=== PATIENT | female | born 1940 | race Caucasian/White ===

== ENCOUNTER 2016-08-22 18:20 | Emergency (ER) | payer MEDICARE ==
[~2016-08-22] VITALS: Ht 149.9 cm; Wt 61.2 kg
[~2016-08-22 18:20] MED LIST: ACID REDUCER; ASPI-515 PO; ASPI325T4 PO; CA C1TAB60 PO; EXEN5PEN2 SQ; FISH OIL PO; FLUT10SP NAS; IBUP1TAB11 PO; INSU100C5 SQ-INSULIN; INSU100V14 SQ; LEVIMIR SC; LEVO50TA5 PO; MAGNESIUM PO; MELATONIN PO; MELO-184 PO; METF1000 PO; METO1TAB6 PO; METO25TA35 PO; METO50TA82 PO; OMEP-110 PO; ONE A DAY VITAMIN PO; OXYC5CAP4 PO; SIMV20TA3 PO; TUMS; TYLENOL PM PO; TYLENOL PO; ULTRAM PO; VITA150T PO; VITAMIN B12 PO; VITAMIN C PO; VITAMIN D PO; ZOLP10TA5 PO; [UNRECOGNIZED DRUG - OTHER] PO
[2016-08-22] MEDS ORDERED: TRAM-28 PO (21:57)
[2016-08-22] MEDS ORDERED: INSU100V13 SQ (21:57)
[2016-08-22] MEDS ORDERED: HYDROmorphone 1 MG/ML, 1ML ONE (21:58)
[2016-08-22] MEDS ORDERED: HYDROmorphone 1 MG/ML, 1ML IM ONE (22:00)
[2016-08-22 23:19] VITALS: BP 112/65
== END 2016-08-22 23:21 | disposition home or self-care (01) ==
LOC: ED 19:17
DX: M54.41 Lumbago with sciatica, right side (principal); I10 Essential (primary) hypertension; E11.9 Type 2 diabetes mellitus without complications; I25.10 Atherosclerotic heart disease of native coronary artery without angina pectoris; E78.00 Pure hypercholesterolemia, unspecified; Z85.3 Personal history of malignant neoplasm of breast
CPT/HCPCS: 72131; 73564; 73700; 96372; 99284; J1170

== ENCOUNTER → 2016-12-28 | Outpatient (CLI) | payer MEDICARE ==
[~2016-12-28] MED LIST changes: +INSU100V13 SQ; +TRAM-28 PO
[2016-12-28 15:54] LABS: ASPARTATE AMINO TRANSFERASE 22 U/L (15-37); BLOOD UREA NITROGEN 22 mg/dL (7-18)
== END | disposition home or self-care (01) ==
LOC: STAR 14:34
PROVIDERS: ATTEND Urology
DX: Z01.818 Encounter for other preprocedural examination (principal); C64.9 Malignant neoplasm of unspecified kidney, except renal pelvis; R82.99 Other abnormal findings in urine
CPT/HCPCS: 36415; 80053; 81003; 85025; 87086; 93005

== ENCOUNTER 2016-12-30 08:51 | Day surgery (SDC) | payer MEDICARE ==
[~2016-12-30] VITALS: Ht 149.9 cm; Wt 60.2 kg
[2016-12-30 09:34] VITALS: BP 134/90
[2016-12-30] MEDS ORDERED: SODIUM CHLORIDE 0.9% 1,000 ML IV SCH (10:00)
[2016-12-30] MEDS ORDERED: MIDAZOLAM 1 MG/ML, 5ML ONE ×2 (10:33→10:34)
[2016-12-30] MEDS ORDERED: NALOXONE 1 MG/ML, 2ML ONE (10:35)
[2016-12-30] MEDS ORDERED: FENTANYL PF 100 MCG/2ML ONE ×2 (10:35)
[2016-12-30] MEDS ORDERED: FLUMAZENIL 0.1 MG/1 ML, 5ML ONE (10:35)
== END 2016-12-30 12:55 ==
LOC: OUT 08:51 → EDSTATUS 10:30 → OUT 12:55
PROVIDERS: ATTEND Urology
DX: C64.1 Malignant neoplasm of right kidney, except renal pelvis (principal); I10 Essential (primary) hypertension; E11.9 Type 2 diabetes mellitus without complications; E78.00 Pure hypercholesterolemia, unspecified; Z87.39 Personal history of other diseases of the musculoskeletal system and connective tissue; Z85.3 Personal history of malignant neoplasm of breast; Z79.82 Long term (current) use of aspirin; Z98.890 Other specified postprocedural states; Z96.649 Presence of unspecified artificial hip joint; Z96.659 Presence of unspecified artificial knee joint; Z90.10 Acquired absence of unspecified breast and nipple; Z87.891 Personal history of nicotine dependence
CPT/HCPCS: 36415; 50200; 77012; 85610; 88304; 99156; 99157; J2250; J3010; J2310

== ENCOUNTER → 2017-03-10 | Outpatient (CLI) | payer MEDICARE ==
[~2017-03-10] MED LIST changes: +ASPI325T17 PO; -ASPI325T4 PO; -MELO-184 PO; +MELO15TA24 PO; +OXYC5CAP2 PO; -OXYC5CAP4 PO; -TRAM-28 PO; +TRAM-47 PO
== END | disposition home or self-care (01) ==
LOC: CFH 13:04
PROVIDERS: ATTEND Internal Medicine Hematology & Oncology
DX: R60.0 Localized edema (principal); C50.412 Malignant neoplasm of upper-outer quadrant of left female breast
CPT/HCPCS: 93970

== ENCOUNTER → 2017-03-28 | Outpatient (CLI) | payer MEDICARE ==
[~2017-03-28] MED LIST changes: +LIDOCAINE 1%, 20ML ONE
== END | disposition home or self-care (01) ==
LOC: RAD 15:10
PROVIDERS: ATTEND Internal Medicine Hematology & Oncology
DX: R18.8 Other ascites (principal); C50.412 Malignant neoplasm of upper-outer quadrant of left female breast
CPT/HCPCS: 49083; J3490

== ENCOUNTER 2017-04-01 14:06 | Inpatient (IN) | payer MEDICARE ==
[~2017-04-01] VITALS: Ht 149.9 cm; Wt 63.0 kg
[~2017-04-01 14:06] MED LIST changes: -LIDOCAINE 1%, 20ML ONE
[2017-04-01] MEDS ORDERED: SODIUM CHLORIDE 0.9% 1,000 ML IV ONE (14:39)
[2017-04-01] MEDS ORDERED: SODIUM CHLORIDE 0.9% 1,000ML IVBOLUS ONE (15:00)
[2017-04-01 15:02] LABS: HEMATOCRIT 35.8 % (34.6-47.8); HEMOGLOBIN 11.4 g/dL (11.7-16.4); WHITE BLOOD COUNT 21.6 x10^3/uL (3.4-10)
[2017-04-01] MEDS ORDERED: DEXAMETHASONE 4 MG TABLET ONE (15:06)
[2017-04-01 15:13] LABS: ASPARTATE AMINO TRANSFERASE 18 U/L (15-37); BLOOD UREA NITROGEN 23 mg/dL (7-18)
[2017-04-01 15:34] LABS: VERIFY COUNTS? YES
[2017-04-01 15:35] LABS: ANISOCYTOSIS 1+; POLYCHROMASIA 1+
[2017-04-01 15:36] LABS: OVALOCYTES 1+
[2017-04-01 15:37] LABS: DIFF TOTAL CELLS COUNTED 100 CELL DIFF
[2017-04-01] MEDS ORDERED: SODIUM CHLORIDE FLUSH 10ML SYR IVF ONE (16:00)
[2017-04-01] MEDS ORDERED: ACETAMINOPHEN 325 MG TABLET PO PRN (17:30)
[2017-04-01] MEDS ORDERED: DEXTROSE 4 GM TAB.CHEW PO PRN (17:30)
[2017-04-01] MEDS ORDERED: ONDANSETRON ODT 4 MG PO PRN (17:30)
[2017-04-01] MEDS ORDERED: OMEPRAZOLE 20 MG CAPSULE.DR PO SCH (17:30)
[2017-04-01] MEDS ORDERED: MELOXICAM 15 MG TABLET PO PRN (17:30)
[2017-04-01] MEDS ORDERED: DEXTROSE 50%, 50ML SYRINGE IVPush PRN (17:30)
[2017-04-01] MEDS ORDERED: GLUCAGON 1 MG IM PRN (17:30)
[2017-04-01] MEDS ORDERED: ALBUTEROL/IPRATROPIUM 2.5MG/0.5MG, 3 ML NPPB PRN (17:30)
[2017-04-01] MEDS ORDERED: HYDROcodone/APAP 5/325 TABLET PO PRN (17:30)
[2017-04-01] MEDS ORDERED: CEFTRIAXONE 1,000 MG in DEXTROSE 5% 50 ML IV SCH ×2 (18:00→18:54)
[2017-04-01] MEDS: metroNIDAZOLE 500 MG TABLET PO SCH (19:48)
[2017-04-01] MEDS: SIMVASTATIN 20 MG TABLET PO SCH (19:49)
[2017-04-01] MEDS: METOPROLOL TARTRATE 50 MG TABLET PO SCH (19:50)
[2017-04-01 20:00] VITALS: BP 156/94
[2017-04-01] MEDS ORDERED: ZOLPIDEM 10MG TABLET PO PRN (21:00)
[2017-04-01] MEDS: SODIUM CHLORIDE 0.9% 1,000 ML IV SCH (21:04)
[2017-04-01] MEDS: ALUMINUM/MAG/SIMETHICONE 30 ML UDC PO PRN (21:05)
[2017-04-01] MEDS: SODIUM CHLORIDE FLUSH 10ML SYR IVF SCH (21:05)
[2017-04-01] MEDS: HEPARIN 5,000 UNITS/ML, 1ML SQ SCH (21:06)
[2017-04-01] MEDS: INSULIN ASPART 100 UNITS/ML, PEN SQ-INSULIN SCH (21:06)
[2017-04-01] MEDS: INSULIN DETEMIR 100 UNITS/ML, PEN SQ-INSULIN SCH (21:07)
[2017-04-01 23:56] VITALS: BP 156/94
[2017-04-02 02:00] VITALS: BP 93/66
[2017-04-02 05:26] LABS: HEMATOCRIT 32.7 % (34.6-47.8); HEMOGLOBIN 10.5 g/dL (11.7-16.4); WHITE BLOOD COUNT 22.3 x10^3/uL (3.4-10)
[2017-04-02 05:35] LABS: ASPARTATE AMINO TRANSFERASE 16 U/L (15-37); BLOOD UREA NITROGEN 16 mg/dL (7-18)
[2017-04-02] MEDS: metroNIDAZOLE 500 MG TABLET PO SCH ×4 (05:44→21:32)
[2017-04-02] MEDS: HEPARIN 5,000 UNITS/ML, 1ML SQ SCH ×3 (05:44→21:34)
[2017-04-02 06:00] LABS: DIFF TOTAL CELLS COUNTED 100 CELL DIFF
[2017-04-02 06:02] LABS: ANISOCYTOSIS 1+; MICROCYTOSIS 1+; VERIFY COUNTS? YES
[2017-04-02 06:03] LABS: OVALOCYTES 1+; POLYCHROMASIA 1+
[2017-04-02] MEDS: INSULIN ASPART 100 UNITS/ML, PEN SQ-INSULIN SCH ×5 (07:00→21:34)
[2017-04-02 08:03] VITALS: BP 104/69
[2017-04-02] MEDS: LEVOTHYROXINE 50 MCG TABLET PO SCH (08:32)
[2017-04-02] MEDS: ASPIRIN 81 MG TABLET EC PO SCH (08:32)
[2017-04-02] MEDS: METOPROLOL TARTRATE 50 MG TABLET PO SCH ×2 (08:32→21:33)
[2017-04-02] MEDS: SODIUM CHLORIDE FLUSH 10ML SYR IVF SCH ×2 (08:32→21:33)
[2017-04-02] MEDS: SODIUM CHLORIDE 0.9% 1,000 ML IV SCH (08:32)
[2017-04-02] MEDS: ALUMINUM/MAG/SIMETHICONE 30 ML UDC PO PRN ×2 (11:56→18:00)
[2017-04-02 13:02] VITALS: BP 135/77
[2017-04-02 13:13] VITALS: BP 100/63
[2017-04-02] MEDS ORDERED: DEXTROSE 4 GM TAB.CHEW PO PRN (19:30)
[2017-04-02] MEDS ORDERED: ZOLPIDEM 10MG TABLET PO PRN (19:30)
[2017-04-02] MEDS ORDERED: ACETAMINOPHEN 325 MG TABLET PO PRN (19:30)
[2017-04-02] MEDS ORDERED: HYDROcodone/APAP 5/325 TABLET PO PRN (19:30)
[2017-04-02] MEDS ORDERED: GLUCAGON 1 MG IM PRN (19:30)
[2017-04-02] MEDS ORDERED: ALBUTEROL/IPRATROPIUM 2.5MG/0.5MG, 3 ML NPPB PRN (19:30)
[2017-04-02] MEDS ORDERED: ONDANSETRON ODT 4 MG PO PRN (19:30)
[2017-04-02 21:25] VITALS: BP 136/67
[2017-04-02] MEDS: OMEPRAZOLE 20 MG CAPSULE.DR PO PRN (21:31)
[2017-04-02] MEDS: SIMVASTATIN 20 MG TABLET PO SCH (21:32)
[2017-04-02] MEDS: INSULIN DETEMIR 100 UNITS/ML, PEN SQ-INSULIN SCH (21:35)
[2017-04-03 00:46] VITALS: BP 130/86
[2017-04-03] MEDS: SODIUM CHLORIDE 0.9% 1,000 ML IV SCH ×2 (01:14→11:38)
[2017-04-03] MEDS: metroNIDAZOLE 500 MG TABLET PO SCH (04:00)
[2017-04-03 05:23] LABS: HEMATOCRIT 30.8 % (34.6-47.8); HEMOGLOBIN 9.9 g/dL (11.7-16.4); WHITE BLOOD COUNT 21.5 x10^3/uL (3.4-10)
[2017-04-03 05:36] LABS: BLOOD UREA NITROGEN 14 mg/dL (7-18)
[2017-04-03] MEDS: LEVOTHYROXINE 50 MCG TABLET PO SCH (05:37)
[2017-04-03] MEDS: HEPARIN 5,000 UNITS/ML, 1ML SQ SCH ×2 (05:37→13:00)
[2017-04-03] MEDS: ALUMINUM/MAG/SIMETHICONE 30 ML UDC PO PRN ×2 (05:37→10:04)
[2017-04-03 06:16] LABS: DIFF TOTAL CELLS COUNTED 100 CELL DIFF
[2017-04-03 06:19] LABS: VERIFY COUNTS? YES
[2017-04-03 06:21] LABS: OVALOCYTES 1+; POLYCHROMASIA 1+
[2017-04-03 06:22] LABS: ANISOCYTOSIS 1+; HYPOCHROMIA 1+; MICROCYTOSIS 1+
[2017-04-03] MEDS: INSULIN ASPART 100 UNITS/ML, PEN SQ-INSULIN SCH ×2 (07:00→11:37)
[2017-04-03 08:00] VITALS: BP 135/85
[2017-04-03] MEDS: ASPIRIN 81 MG TABLET EC PO SCH (09:06)
[2017-04-03] MEDS: SODIUM CHLORIDE FLUSH 10ML SYR IVF SCH (09:06)
[2017-04-03] MEDS: METOPROLOL TARTRATE 50 MG TABLET PO SCH (09:06)
[2017-04-03] MEDS: OMEPRAZOLE 20 MG CAPSULE.DR PO PRN (11:38)
[2017-04-03 13:47] VITALS: BP 135/81
== END 2017-04-03 15:37 | disposition home or self-care (01) | DRG 393 ==
LOC: ED 14:57 → EDIP 17:17 → 4WST 18:38
PROVIDERS: ADMIT Family Medicine; ATTEND Family Medicine
DX: K52.1 Toxic gastroenteritis and colitis (principal); E11.00 Type 2 diabetes mellitus with hyperosmolarity without nonketotic hyperglycemic-hyperosmolar coma (NKHHC); N17.9 Acute kidney failure, unspecified; R65.10 Systemic inflammatory response syndrome (SIRS) of non-infectious origin without acute organ dysfunction; C56.9 Malignant neoplasm of unspecified ovary; Z99.81 Dependence on supplemental oxygen; E86.0 Dehydration; D72.829 Elevated white blood cell count, unspecified; E11.65 Type 2 diabetes mellitus with hyperglycemia; E03.9 Hypothyroidism, unspecified; E78.00 Pure hypercholesterolemia, unspecified; I25.10 Atherosclerotic heart disease of native coronary artery without angina pectoris; I10 Essential (primary) hypertension; R09.02 Hypoxemia; Z95.5 Presence of coronary angioplasty implant and graft; Z79.82 Long term (current) use of aspirin; Z79.4 Long term (current) use of insulin; Z85.43 Personal history of malignant neoplasm of ovary; Z85.3 Personal history of malignant neoplasm of breast; Z87.891 Personal history of nicotine dependence; Z91.09 Other allergy status, other than to drugs and biological substances; T45.1X5A Adverse effect of antineoplastic and immunosuppressive drugs, initial encounter
CPT/HCPCS: 36415; 71010; 80048; 80053; 81003; 82962; 83605; 83880; 84439; 84443; 85025; 87324; 89055; 93005; 93306; 99285; J0696; J1644; J1815; J7030

== ENCOUNTER → 2017-05-31 | Outpatient (CLI) | payer MEDICARE ==
[~2017-05-31] MED LIST changes: +OMNIPAQUE 350 MG/ML, 100ML BOTTLE ONE
== END ==
LOC: RAD 13:41
PROVIDERS: ATTEND Internal Medicine Hematology & Oncology
DX: K44.9 Diaphragmatic hernia without obstruction or gangrene (principal); R19.01 Right upper quadrant abdominal swelling, mass and lump; R59.0 Localized enlarged lymph nodes; I31.3 Pericardial effusion (noninflammatory); C50.412 Malignant neoplasm of upper-outer quadrant of left female breast; C56.9 Malignant neoplasm of unspecified ovary
CPT/HCPCS: 71260; 74177; Q9967

== ENCOUNTER → 2017-08-11 | Outpatient (CLI) | payer MEDICARE | END | disposition home or self-care (01) | LOC: CFH 12:39 | PROVIDERS: ATTEND Internal Medicine Hematology & Oncology | DX: C56.9 Malignant neoplasm of unspecified ovary (principal); J84.10 Pulmonary fibrosis, unspecified; R91.1 Solitary pulmonary nodule; R59.1 Generalized enlarged lymph nodes; K59.00 Constipation, unspecified; K44.9 Diaphragmatic hernia without obstruction or gangrene | CPT/HCPCS: 71260; 74177; Q9967 ==

== ENCOUNTER → 2017-10-18 | Outpatient (CLI) | payer MEDICARE | END | disposition home or self-care (01) | LOC: CFH 12:46 | PROVIDERS: ATTEND Internal Medicine Hematology & Oncology | DX: J84.10 Pulmonary fibrosis, unspecified (principal); R91.1 Solitary pulmonary nodule; R19.01 Right upper quadrant abdominal swelling, mass and lump; C56.9 Malignant neoplasm of unspecified ovary; C50.412 Malignant neoplasm of upper-outer quadrant of left female breast; Z96.643 Presence of artificial hip joint, bilateral | CPT/HCPCS: 71260; 74177; Q9967 ==

== ENCOUNTER → 2018-03-23 | Outpatient (CLI) | payer MEDICARE ==
[~2018-03-23] MED LIST changes: +HYDR-3307 PO; +NOVALOG SC; +OLAP150T PO; -OMNIPAQUE 350 MG/ML, 100ML BOTTLE ONE; +OXYC10TA6 PO; +QUET25TA5 PO
== END | disposition home or self-care (01) ==
LOC: PETCFH 08:52
PROVIDERS: ATTEND Internal Medicine Hematology & Oncology
DX: N63.10 Unspecified lump in the right breast, unspecified quadrant (principal); K92.89 Other specified diseases of the digestive system; Z85.3 Personal history of malignant neoplasm of breast
CPT/HCPCS: 78815; A9552

== ENCOUNTER → 2018-09-06 | Outpatient (CLI) | payer MEDICARE ==
[~2018-09-06] MED LIST changes: +OMNIPAQUE 350 MG/ML, 100ML BOTTLE ONE
== END | disposition home or self-care (01) ==
LOC: CFH 13:02
PROVIDERS: ATTEND Internal Medicine Hematology & Oncology
DX: J84.10 Pulmonary fibrosis, unspecified (principal); M47.9 Spondylosis, unspecified; K44.9 Diaphragmatic hernia without obstruction or gangrene; C50.412 Malignant neoplasm of upper-outer quadrant of left female breast; C56.9 Malignant neoplasm of unspecified ovary
CPT/HCPCS: 71260; 74177; Q9967

== ENCOUNTER → 2018-10-21 | Outpatient (CLI) | payer MEDICARE ==
[~2018-10-21] MED LIST changes: -OMNIPAQUE 350 MG/ML, 100ML BOTTLE ONE
== END | disposition home or self-care (01) ==
LOC: RAD 08:13
PROVIDERS: ATTEND Internal Medicine Hematology & Oncology
DX: C56.9 Malignant neoplasm of unspecified ovary (principal); K76.89 Other specified diseases of liver; R18.8 Other ascites; I70.0 Atherosclerosis of aorta
CPT/HCPCS: 76700

== ENCOUNTER 2018-11-07 09:47 | Emergency (ER) | payer MEDICARE ==
[~2018-11-07] VITALS: Ht 149.9 cm; Wt 57.6 kg
[2018-11-07] MEDS ORDERED: SODIUM CHLORIDE FLUSH 10ML SYR IVF ONE (10:30)
[2018-11-07 10:44] LABS: BASOPHILS % (AUTO) 0 % (0-1); EOSINOPHILS % (AUTO) 0 % (1-7); LYMPHOCYTES # (AUTO) 1.01 x10^3/uL (1-3.4); LYMPHOCYTES % (AUTO) 14 % (22-44); MD NO; MEAN CORPUSCULAR HGB CONC 31.2 g/dL (32.4-35.8); MEAN CORPUSCULAR VOLUME 89.7 fL (80-100); MEAN PLATELET VOLUME 8.8 fL (7.4-10.4); MONOCYTES # (AUTO) 0.23 x10^3/uL (0.2-0.8); MONOCYTES % (AUTO) 3 % (2-9); NEUTROPHILS # (AUTO) 5.92 x10^3/uL (1.8-6.8); NEUTROPHILS % (AUTO) 83 % (42-75); PLATELET COUNT 161 x10^3/uL (130-400); RED BLOOD COUNT 3.83 x10^6/uL (3.82-5.3)
[2018-11-07 10:53] LABS: INTERNATIONAL NORMALIZED RATIO 1.06 (0.93-1.1); PROTHROMBIN TIME 11.1 Seconds (9.6-11.5)
[2018-11-07 10:55] LABS: ALANINE AMINOTRANSFERASE 18 U/L (12-78); ALBUMIN 2.7 g/dL (3.4-5.0); ANION GAP 10 mmol/L (5-15); CALCIUM 9.5 mg/dL (8.5-10.1); CHLORIDE 103 mmol/L (98-107); CREATININE 1.32 mg/dL (0.55-1.02)
[2018-11-07 10:57] LABS: ALKALINE PHOSPHATASE 83 U/L (45-117); BILIRUBIN,TOTAL 0.5 mg/dL (0.2-1.0); TOTAL PROTEIN 5.8 g/dL (6.4-8.2)
--- NOTE | 2018-11-07 11:43 | NUR ---
PT PRESENTS WITH "DISTENTION FOR ABOUT 10 DAYS". PT ALSO REPORTS FEELING CONSTIPATED AND HAS ABD PAIN. 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 PT STATES SHE HAS HAD A HEART ATTACK "WITHIN THE LAST 10 YEARS".
[2018-11-07] MEDS ORDERED: OMNIPAQUE 350 MG/ML, 100ML BOTTLE ONE (12:11)
[2018-11-07] MEDS ORDERED: LIDOCAINE-MPF 1%, 5ML ONE ×2 (13:02→14:29)
--- NOTE | 2018-11-07 13:25 | NUR ---
AWARE OF PARACENTESIS KIT AT BEDSIDE
--- NOTE | 2018-11-07 13:37 | NUR ---
PT RESTING IN BED, HIRAM AT BEDSIDE. NO ACUTE SIGNS OF DISTRESS.
--- NOTE | 2018-11-07 14:28 | NUR ---
TASK RN: ERP AT BEDSIDE FOR PARACENTESIS. CONSENT SIGNED AND IS AT BEDSIDE. BP/SPO2/ECG MONITORING IN PLACE. NSR ON MONITOR.
--- NOTE | 2018-11-07 14:44 | NUR ---
TASK RN: PT REPORTS INSULIN INDEPENDENT DM, "I HAVEN'T EATEN ALL DAY, CAN YOU CHECK MY SUGAR?". OKAY PER ERP. FSBS 130
--- NOTE | 2018-11-07 14:48 | NUR ---
DR LILLY AT BEDSIDE, FOR PARACENTESIS. NEEDLED INSERTED AND FLUID DRAINING W/O DIFFICULTY. +SERROSANGUNOUS DRAINAGE, PT TOLLERATING WELL. VSS
[2018-11-07 15:10] VITALS: BP 132/77
--- NOTE | 2018-11-07 15:14 | NUR ---
NO ACUTE SIGNS OF DISTRESS.
--- NOTE | 2018-11-07 16:00 | NUR ---
PARACENTESIS SITE IS CLEAN AND HAS NO DRAINAGE. IV REMOVED WITH TIP INTACT. PT VERBALIZED UNDERSTANDING OF ALL DC INSTRUCTIONS. PT DC'D IN STABLE CONDITION, STEADY ON FEET. PT DENIES ADDITIONAL NEEDS.
== END 2018-11-07 16:03 | disposition home or self-care (01) ==
LOC: ED 13:38
DX: R18.8 Other ascites (principal); C79.60 Secondary malignant neoplasm of unspecified ovary; R16.0 Hepatomegaly, not elsewhere classified; E11.9 Type 2 diabetes mellitus without complications; I10 Essential (primary) hypertension; I25.10 Atherosclerotic heart disease of native coronary artery without angina pectoris; Z87.891 Personal history of nicotine dependence
CPT/HCPCS: 36415; 49083; 74177; 80053; 82962; 83605; 83690; 85025; 85610; 85730; 87070; 87205; 89051; 99285; Q9967

== ENCOUNTER 2018-11-12 11:27 | Inpatient (IN) | payer MEDICARE ==
[~2018-11-12] VITALS: Ht 149.9 cm; Wt 57.1 kg
[2018-11-12] MEDS ORDERED: ONDANSETRON 2MG/ML, 2ML ONE (11:54)
[2018-11-12] MEDS ORDERED: MORPHINE SULFATE 4 MG/ML, 1ML ONE ×2 (11:54→15:27)
[2018-11-12] MEDS ORDERED: ONDANSETRON 2MG/ML, 2ML IVPush ONE (12:00)
[2018-11-12] MEDS: MORPHINE SULFATE 4 MG/ML, 1ML IVPush PRN ×2 (12:05→15:29)
[2018-11-12 12:37] LABS: INTERNATIONAL NORMALIZED RATIO 1.03 (0.93-1.1); PROTHROMBIN TIME 10.8 Seconds (9.6-11.5)
[2018-11-12 12:40] LABS: MEAN CORPUSCULAR HEMOGLOBIN 27.4 pg (27.0-34.8); MEAN CORPUSCULAR HGB CONC 31.1 g/dL (32.4-35.8); MEAN CORPUSCULAR VOLUME 88.3 fL (80-100); MEAN PLATELET VOLUME 9.6 fL (7.4-10.4); PLATELET COUNT 128 x10^3/uL (130-400); RED BLOOD COUNT 2.98 x10^6/uL (3.82-5.3); RED CELL DISTRIBUTION WIDTH 16.4 % (9.6-15.2)
[2018-11-12 12:41] LABS: ALANINE AMINOTRANSFERASE 12 U/L (12-78); ALBUMIN 2.3 g/dL (3.4-5.0); ANION GAP 7 mmol/L (5-15); CHLORIDE 103 mmol/L (98-107); CREATININE 1.25 mg/dL (0.55-1.02)
[2018-11-12 12:45] LABS: ALKALINE PHOSPHATASE 74 U/L (45-117); TOTAL PROTEIN 5.1 g/dL (6.4-8.2); TROPONIN I 0.047 ng/mL (0.000-0.045)
[2018-11-12 12:53] LABS: MD YES
[2018-11-12 12:55] LABS: LYMPH#(MANUAL) 0.62 x10^3/uL (1-3.4); LYMPHS% (MANUAL) 8 % (22-44); MONOS#(MANUAL) 0.31 x10^3/uL (0.3-2.7); MONOS% (MANUAL) 4 % (2-9); SEG#(MANUAL) 6.86 x10^3/uL (1.8-6.8); SEGS% (MANUAL) 88 % (42-75)
[2018-11-12 12:56] LABS: ANISOCYTOSIS 1+; HYPOCHROMIA 1+; OVALOCYTES 1+; POLYCHROMASIA 1+
[2018-11-12 12:58] LABS: MICROCYTOSIS 1+
[2018-11-12 12:59] LABS: <PLATELET ESTIMATE> DECREASED; <PLT MORPHOLOGY> NORMAL PLT MORPH
--- NOTE | 2018-11-12 13:40 | NUR ---
Pt back to room from CT on misty. HARPREET. No needs expressed. Pt reconnected to orchid grower, NIBP cuff, and continous pulse ox. Both bedrails up for safety measures. Call light within reach.
[2018-11-12] MEDS ORDERED: OMNIPAQUE 350 MG/ML, 100ML BOTTLE ONE (13:55)
--- NOTE | 2018-11-12 14:15 | NUR ---
Pt aware of need of UA. Pt unable to provide urine sample at this time.
--- NOTE | 2018-11-12 15:57 | NUR ---
Provided report to ONC charge, RN. All questions answered. Pt ready to transfer to floor from ED.
[2018-11-12] MEDS ORDERED: ENOXAPARIN 30 MG/0.3 ML SQ SCH (16:00)
[2018-11-12] MEDS ORDERED: ACETAMINOPHEN 325 MG TABLET PO PRN (16:00)
[2018-11-12] MEDS ORDERED: ONDANSETRON ODT 4 MG PO PRN (16:00)
[2018-11-12 16:17] VITALS: BP 134/82
--- NOTE | 2018-11-12 16:18 | NUR ---
Pt transfered to floor from ED and left with all personal belongings.
[2018-11-12] MEDS ORDERED: OXYcodone IR 5MG TABLET PO PRN (16:30)
[2018-11-12 16:36] LABS: HEMOGLOBIN A1C 6.4 % (4.2-6.3)
[2018-11-12] MEDS: metFORMIN 500 MG TABLET PO SCH (17:00)
[2018-11-12 17:14] LABS: HCT (SEDRATE) 25.9 % (34.6-47.8)
[2018-11-12] MEDS ORDERED: LIRA0.6P SQ (17:48)
[2018-11-12 17:51] LABS: C-REACTIVE PROTEIN, QUANT 5.5 mg/dL (0.02-0.49); THYROID STIMULATING HORMONE 3.04 mIU/L (0.358-3.740)
[2018-11-12 20:37] VITALS: BP 128/85
[2018-11-12] MEDS: SIMVASTATIN 20 MG TABLET PO SCH (20:43)
[2018-11-12] MEDS: METOPROLOL TARTRATE 50 MG TABLET PO SCH (20:44)
[2018-11-12] MEDS: QUETIAPINE 25MG TABLET PO SCH (20:44)
[2018-11-12] MEDS: INSULIN LISPRO 100 UNITS/ML, PEN SQ-INSULIN SCH (20:45)
[2018-11-12] MEDS: OLAPARIB 300 MG HOMEMEDPO SCH (20:46)
[2018-11-12] MEDS: morphine SULFATE 10 MG/ML, 1ML IVPush PRN (20:53)
[2018-11-12] MEDS ORDERED: MAALOX/HYOSCYAMINE/LIDOCAINE 45 ML BTL PO ONE (21:00)
[2018-11-12] MEDS ORDERED: INSULIN GLARGINE 100 UNITS/ML, PEN SQ-INSULIN SCH (21:00)
[2018-11-12] MEDS: HYDROcodone/APAP 5/325 TABLET PO PRN (23:00)
[2018-11-12 23:27] LABS: MICROSCOPIC AUTO
[2018-11-12 23:34] LABS: CULTURE INDICATED? NO
[2018-11-13 00:08] LABS: OCCULT BLOOD NEGATIVE (NEGATIVE)
[2018-11-13 01:56] VITALS: BP 101/59
[2018-11-13 06:00] LABS: BASOPHILS % (AUTO) 0 % (0-1); EOSINOPHILS # (AUTO) 0.04 x10^3/uL (0-0.4); EOSINOPHILS % (AUTO) 1 % (1-7); LYMPHOCYTES # (AUTO) 1.88 x10^3/uL (1-3.4); LYMPHOCYTES % (AUTO) 28 % (22-44); MD NO; MEAN CORPUSCULAR HEMOGLOBIN 27.8 pg (27.0-34.8); MEAN CORPUSCULAR HGB CONC 30.9 g/dL (32.4-35.8); MEAN PLATELET VOLUME 9.8 fL (7.4-10.4); MONOCYTES # (AUTO) 0.68 x10^3/uL (0.2-0.8); MONOCYTES % (AUTO) 10 % (2-9); NEUTROPHILS # (AUTO) 4.05 x10^3/uL (1.8-6.8); NEUTROPHILS % (AUTO) 61 % (42-75); PLATELET COUNT 116 x10^3/uL (130-400); RED BLOOD COUNT 2.77 x10^6/uL (3.82-5.3); RED CELL DISTRIBUTION WIDTH 17.1 % (9.6-15.2)
[2018-11-13 06:11] LABS: ALBUMIN 2.2 g/dL (3.4-5.0); ANION GAP 6 mmol/L (5-15); CALCIUM 9.7 mg/dL (8.5-10.1); CHLORIDE 103 mmol/L (98-107)
[2018-11-13 06:17] LABS: ALANINE AMINOTRANSFERASE 11 U/L (12-78); ALKALINE PHOSPHATASE 68 U/L (45-117); TOTAL PROTEIN 4.9 g/dL (6.4-8.2)
[2018-11-13] MEDS: INSULIN LISPRO 100 UNITS/ML, PEN SQ-INSULIN SCH ×4 (07:00→21:41)
[2018-11-13] MEDS ORDERED: LIDOCAINE-MPF 1%, 5ML ONE (07:56)
[2018-11-13] MEDS: metFORMIN 500 MG TABLET PO SCH (08:00)
[2018-11-13 08:49] VITALS: BP 107/73
[2018-11-13] MEDS: OLAPARIB 300 MG HOMEMEDPO SCH ×2 (09:00→21:00)
[2018-11-13] MEDS: METOPROLOL TARTRATE 50 MG TABLET PO SCH ×2 (13:15→21:42)
[2018-11-13] MEDS: LEVOTHYROXINE 100 MCG TABLET PO SCH (13:16)
[2018-11-13 14:21] VITALS: BP 101/64
[2018-11-13] MEDS: ALUMINUM/MAG/SIMETHICONE 30 ML UDC PO PRN ×2 (14:39→19:10)
[2018-11-13] MEDS ORDERED: DEXTROSE 50%, 50ML SYRINGE IVPush PRN (18:00)
[2018-11-13] MEDS ORDERED: CEFTRIAXONE PMX 2GM/50ML 50 ML IV SCH (18:00)
[2018-11-13] MEDS ORDERED: DEXTROSE 4 GM TAB.CHEW PO PRN (18:00)
[2018-11-13] MEDS ORDERED: GLUCAGON 1 MG IM PRN (18:00)
[2018-11-13] MEDS: morphine SULFATE 10 MG/ML, 1ML IVPush PRN (19:47)
[2018-11-13] MEDS ORDERED: PANTOPRAZOLE 40 MG IV IVPush ONE (20:00)
[2018-11-13 20:21] VITALS: BP 116/74
[2018-11-13] MEDS ORDERED: SODIUM CHLORIDE FLUSH 10ML SYR IVF SCH (21:00)
[2018-11-13] MEDS: QUETIAPINE 25MG TABLET PO SCH (21:38)
[2018-11-13] MEDS: SIMVASTATIN 20 MG TABLET PO SCH (21:38)
[2018-11-14 04:20] VITALS: BP 114/68
[2018-11-14] MEDS: HYDROcodone/APAP 5/325 TABLET PO PRN (04:52)
[2018-11-14 05:07] LABS: BASOPHILS # (AUTO) 0.01 x10^3/uL (0-0.1); BASOPHILS % (AUTO) 0 % (0-1); EOSINOPHILS # (AUTO) 0.02 x10^3/uL (0-0.4); EOSINOPHILS % (AUTO) 0 % (1-7); LYMPHOCYTES # (AUTO) 0.71 x10^3/uL (1-3.4); LYMPHOCYTES % (AUTO) 10 % (22-44); MD NO; MEAN CORPUSCULAR HEMOGLOBIN 27.3 pg (27.0-34.8); MEAN CORPUSCULAR HGB CONC 30.5 g/dL (32.4-35.8); MEAN CORPUSCULAR VOLUME 89.7 fL (80-100); MONOCYTES # (AUTO) 0.65 x10^3/uL (0.2-0.8); MONOCYTES % (AUTO) 9 % (2-9); NEUTROPHILS # (AUTO) 5.64 x10^3/uL (1.8-6.8); NEUTROPHILS % (AUTO) 80 % (42-75); PLATELET COUNT 101 x10^3/uL (130-400); RED BLOOD COUNT 2.59 x10^6/uL (3.82-5.3); RED CELL DISTRIBUTION WIDTH 16.2 % (9.6-15.2)
[2018-11-14 05:26] LABS: CHLORIDE 102 mmol/L (98-107)
[2018-11-14 05:33] LABS: ALANINE AMINOTRANSFERASE 11 U/L (12-78); ALBUMIN 2.1 g/dL (3.4-5.0); ALKALINE PHOSPHATASE 71 U/L (45-117); ANION GAP 7 mmol/L (5-15); BILIRUBIN,TOTAL 0.9 mg/dL (0.2-1.0); CALCIUM 8.8 mg/dL (8.5-10.1); CREATININE 1.36 mg/dL (0.55-1.02); TOTAL PROTEIN 4.6 g/dL (6.4-8.2)
[2018-11-14 07:51] VITALS: BP 100/54
[2018-11-14] MEDS: METOPROLOL TARTRATE 50 MG TABLET PO SCH (08:24)
[2018-11-14] MEDS: LEVOTHYROXINE 100 MCG TABLET PO SCH (08:24)
[2018-11-14] MEDS: INSULIN LISPRO 100 UNITS/ML, PEN SQ-INSULIN SCH ×2 (08:56→11:59)
[2018-11-14] MEDS ORDERED: OXYcodone IR 5MG TABLET PO PRN ×2 (09:00→13:00)
[2018-11-14] MEDS ORDERED: SODIUM CHLORIDE 0.9% 1,000 ML IV SCH (09:00)
[2018-11-14] MEDS ORDERED: OMEPRAZOLE 20 MG CAPSULE.DR PO SCH (09:30)
[2018-11-14] MEDS: ALUMINUM/MAG/SIMETHICONE 30 ML UDC PO PRN (11:50)
[2018-11-14] MEDS: morphine SULFATE 10 MG/ML, 1ML IVPush PRN (11:50)
[2018-11-14] MEDS ORDERED: SCOPOLAMINE PATCH, 1.5MG PATCH.TD72 TD PRN (13:00)
[2018-11-14] MEDS ORDERED: ATROPINE OPHTH SOLN 1%, 5ML BC PRN ×2 (13:00→14:00)
[2018-11-14] MEDS ORDERED: LORazepam 2 MG/ML, 1ML IVPush PRN ×2 (13:00→14:00)
[2018-11-14] MEDS ORDERED: MORPHINE SULFATE 4 MG/ML, 1ML IVPush PRN ×6 (13:00→14:00)
[2018-11-14] MEDS ORDERED: OMEP-110 PO (13:50)
[2018-11-14] MEDS ORDERED: SCOP1PAT11 TD (13:50)
[2018-11-14] MEDS ORDERED: SCOPOLAMINE PATCH, 1.5MG PATCH.TD72 TD SCH (14:00)
== END 2018-11-14 14:02 | disposition hospice, home (50) | DRG 754 ==
LOC: ED 12:23 → 3NW 16:14
PROVIDERS: ADMIT Internal Medicine Infectious Disease; ATTEND Internal Medicine Infectious Disease
PROC: 0W9G3ZZ Drainage of Peritoneal Cavity, Percutaneous Approach (ICD-10-PCS; principal; 2018-11-13)
DX: C56.9 Malignant neoplasm of unspecified ovary (principal); I21.4 Non-ST elevation (NSTEMI) myocardial infarction; K65.2 Spontaneous bacterial peritonitis; C78.6 Secondary malignant neoplasm of retroperitoneum and peritoneum; C77.2 Secondary and unspecified malignant neoplasm of intra-abdominal lymph nodes; C78.7 Secondary malignant neoplasm of liver and intrahepatic bile duct; N17.9 Acute kidney failure, unspecified; R18.0 Malignant ascites; C50.912 Malignant neoplasm of unspecified site of left female breast; D63.0 Anemia in neoplastic disease; D69.6 Thrombocytopenia, unspecified; D89.9 Disorder involving the immune mechanism, unspecified; E03.9 Hypothyroidism, unspecified; E11.21 Type 2 diabetes mellitus with diabetic nephropathy; E11.22 Type 2 diabetes mellitus with diabetic chronic kidney disease; E11.649 Type 2 diabetes mellitus with hypoglycemia without coma; E78.00 Pure hypercholesterolemia, unspecified; E78.5 Hyperlipidemia, unspecified; I12.9 Hypertensive chronic kidney disease with stage 1 through stage 4 chronic kidney disease, or unspecified chronic kidney disease; I25.10 Atherosclerotic heart disease of native coronary artery without angina pectoris; K21.9 Gastro-esophageal reflux disease without esophagitis; K44.9 Diaphragmatic hernia without obstruction or gangrene; R91.1 Solitary pulmonary nodule; N18.3 Chronic kidney disease, stage 3 (moderate); R62.7 Adult failure to thrive; Z15.01 Genetic susceptibility to malignant neoplasm of breast; Z51.5 Encounter for palliative care; Z79.4 Long term (current) use of insulin; Z80.3 Family history of malignant neoplasm of breast; Z82.49 Family history of ischemic heart disease and other diseases of the circulatory system; Z87.891 Personal history of nicotine dependence; Z95.5 Presence of coronary angioplasty implant and graft; Z96.653 Presence of artificial knee joint, bilateral; Z96.643 Presence of artificial hip joint, bilateral
CPT/HCPCS: 36415; 49083; 74177; 80053; 81001; 82272; 82607; 82728; 82962; 83036; 83540; 83550; 83735; 84100; 84145; 84443; 84484; 85025; 85610; 85651; 85730; 86140; 86850; 86900; 87070; 87205; 88112; 88305; 88341; 88342; 89051; 93005; 96374; 96375; 96376; G0378; J0696; J2405; Q9967; C9113; J1815; J2270; J7030

== ENCOUNTER 2018-11-14 12:57 | Inpatient (IN) | payer OTHER ==
[~2018-11-14] VITALS: Ht 149.9 cm; Wt 56.7 kg
[~2018-11-14 12:57] MED LIST changes: +LIRA0.6P SQ
[2018-11-14] MEDS ORDERED: OMEP-110 PO (13:50)
[2018-11-14] MEDS ORDERED: SCOP1PAT11 TD (13:50)
[2018-11-14] MEDS ORDERED: SODIUM CHLORIDE 0.9% 1,000 ML IV SCH (14:45)
[2018-11-14 14:50] VITALS: BP 99/62
[2018-11-14] MEDS ORDERED: ATROPINE OPHTH SOLN 1%, 5ML BC PRN (15:00)
[2018-11-14] MEDS ORDERED: ACETAMINOPHEN 325 MG TABLET PO PRN (15:00)
[2018-11-14] MEDS: PLEASE ENTER HEIGHT AND WEIGHT MC SCH ×2 (15:00→23:00)
[2018-11-14] MEDS ORDERED: ONDANSETRON 2MG/ML, 2ML IVPush PRN (15:00)
[2018-11-14] MEDS ORDERED: LORazepam 2 MG/ML, 1ML IVPush PRN (15:00)
[2018-11-14] MEDS ORDERED: hydrOXyzine 10MG TABLET PO PRN (15:00)
[2018-11-14] MEDS ORDERED: SCOPOLAMINE PATCH, 1.5MG PATCH.TD72 TD SCH (15:00)
[2018-11-14] MEDS ORDERED: MORPHINE SULFATE 4 MG/ML, 1ML IVPush PRN ×2 (15:00)
[2018-11-14] MEDS ORDERED: DEXTROSE 4 GM TAB.CHEW PO PRN (15:30)
[2018-11-14] MEDS ORDERED: DEXTROSE 50%, 50ML SYRINGE IVPush PRN (15:30)
[2018-11-14] MEDS ORDERED: ALUMINUM/MAG/SIMETHICONE 30 ML UDC PO PRN (15:30)
[2018-11-14] MEDS ORDERED: GLUCAGON 1 MG IM PRN (15:30)
[2018-11-14] MEDS: METOPROLOL TARTRATE 25 MG TABLET PO SCH (16:43)
[2018-11-14] MEDS: INSULIN LISPRO 100 UNITS/ML, PEN SQ-INSULIN SCH ×2 (16:50→21:39)
[2018-11-14] MEDS ORDERED: QUETIAPINE 25MG TABLET PO SCH (21:00)
[2018-11-14] MEDS: OXYcodone IR 5MG TABLET PO PRN (21:39)
[2018-11-14 21:40] VITALS: BP 110/71
[2018-11-14] MEDS: SODIUM CHLORIDE FLUSH 10ML SYR IVF SCH (21:40)
[2018-11-15] MEDS: OXYcodone IR 5MG TABLET PO PRN (02:30)
[2018-11-15] MEDS: MORPHINE SULFATE 4 MG/ML, 1ML IVPush PRN ×3 (03:17→16:10)
[2018-11-15 04:07] VITALS: BP 106/68
[2018-11-15] MEDS: METOPROLOL TARTRATE 25 MG TABLET PO SCH (05:35)
[2018-11-15] MEDS ORDERED: LEVOTHYROXINE 100 MCG TABLET PO SCH (06:00)
[2018-11-15] MEDS ORDERED: OMEPRAZOLE 20 MG CAPSULE.DR PO SCH (06:00)
[2018-11-15] MEDS: PLEASE ENTER HEIGHT AND WEIGHT MC SCH ×2 (07:00→15:00)
[2018-11-15 08:09] VITALS: BP 116/77
[2018-11-15] MEDS: INSULIN LISPRO 100 UNITS/ML, PEN SQ-INSULIN SCH ×2 (08:15→11:28)
[2018-11-15] MEDS: SODIUM CHLORIDE FLUSH 10ML SYR IVF SCH (11:27)
[2018-11-15 20:46] VITALS: BP 91/59
[2018-11-15] MEDS: LORazepam 2 MG/ML, 1ML IVPush PRN (21:19)
[2018-11-16] MEDS: LORazepam 2 MG/ML, 1ML IVPush PRN (12:18)
== END 2018-11-16 15:45 | disposition expired | DRG 947 ==
LOC: 3NW 14:05
PROVIDERS: ADMIT Internal Medicine; ATTEND Internal Medicine
DX: G89.3 Neoplasm related pain (acute) (chronic) (principal); K65.2 Spontaneous bacterial peritonitis; C56.9 Malignant neoplasm of unspecified ovary; C78.6 Secondary malignant neoplasm of retroperitoneum and peritoneum; C78.7 Secondary malignant neoplasm of liver and intrahepatic bile duct; R18.0 Malignant ascites; D63.8 Anemia in other chronic diseases classified elsewhere; Z91.048 Other nonmedicinal substance allergy status; D69.6 Thrombocytopenia, unspecified; D72.829 Elevated white blood cell count, unspecified; E03.9 Hypothyroidism, unspecified; E11.21 Type 2 diabetes mellitus with diabetic nephropathy; E11.22 Type 2 diabetes mellitus with diabetic chronic kidney disease; E88.09 Other disorders of plasma-protein metabolism, not elsewhere classified; I12.9 Hypertensive chronic kidney disease with stage 1 through stage 4 chronic kidney disease, or unspecified chronic kidney disease; I25.10 Atherosclerotic heart disease of native coronary artery without angina pectoris; K21.9 Gastro-esophageal reflux disease without esophagitis; N18.3 Chronic kidney disease, stage 3 (moderate); T45.1X5A Adverse effect of antineoplastic and immunosuppressive drugs, initial encounter; Y92.89 Other specified places as the place of occurrence of the external cause; Z17.0 Estrogen receptor positive status [ER+]; Z51.5 Encounter for palliative care; Z66 Do not resuscitate; Z74.01 Bed confinement status; Z79.4 Long term (current) use of insulin; Z87.891 Personal history of nicotine dependence; Z95.5 Presence of coronary angioplasty implant and graft; Z96.659 Presence of unspecified artificial knee joint; C50.912 Malignant neoplasm of unspecified site of left female breast
CPT/HCPCS: 82962; G0378; J2270; J2060